=== PATIENT | female | born 1990 | race Caucasian/White ===

== ENCOUNTER → 2018-11-03 | Outpatient (CLI) | payer BC | LOC: BMCIMAGING 08:29 | PROVIDERS: ATTEND Physician Assistant | DX: S52.591D Other fractures of lower end of right radius, subsequent encounter for closed fracture with routine healing (principal) ==

== ENCOUNTER → 2018-11-11 | Outpatient (CLI) | payer BC | LOC: BMCIMAGING 08:32 | PROVIDERS: ATTEND Physician Assistant | DX: S52.591D Other fractures of lower end of right radius, subsequent encounter for closed fracture with routine healing (principal) ==